=== PATIENT | male | born 1950 | race Caucasian/White ===

== ENCOUNTER 2016-07-27 12:00 | Emergency (ER) | payer SELFPAY ==
[2016-07-27] MEDS ORDERED: Sodium Chloride 0.9% 1,000 ML PRIMARY IV ONE (12:07)
[2016-07-27] MEDS ORDERED: NORMAL SALINE 10 ML SYRINGE FLUSH IVP PRN (12:07)
[2016-07-27] MEDS ORDERED: Sodium Chloride 0.9% 1,000 ML, Magnesium Sulfate 2gm (Premix) 50 ML with Multivitamin I... IV ONE ×5 (12:09)
[2016-07-27] MEDS ORDERED: MVI, ADULT NO.1 WITH VIT K 10 ML VIAL IV ONE (12:30)
[2016-07-27] MEDS ORDERED: Sodium Chloride 0.9% 1,000 ML ONE (12:32)
[2016-07-27] MEDS ORDERED: FOLIC ACID 5 MG/1 ML - 10 ML ONE (12:32)
[2016-07-27] MEDS ORDERED: THIAMINE 100 MG/1 ML - 2 ML ONE (12:32)
[2016-07-27] MEDS ORDERED: Magnesium Sulfate 2gm (Premix) 50 ML IV ONE (12:32)
[2016-07-27 12:43] LABS: BASOPHILS # (AUTO) 0.07 10*3/UL; BASOPHILS % (AUTO) 1.5 % (0-1); EOSINOPHILS % (AUTO) 0.8 % (0-8); HEMATOCRIT 43.5 % (42.0-52.0); HEMOGLOBIN 15.6 g/dL (14.0-18.0); IMM GRAN % (AUTO) 0 % (0-5); IMM GRAN# (AUTO) 0 10*3/UL; LYMPHOCYTES # (AUTO) 2.33 10*3/uL; LYMPHOCYTES % (AUTO) 48.4 % (10-50); MEAN CORPUSCULAR HEMOGLOBIN 32.8 PG (27-31); MEAN CORPUSCULAR HGB CONC 35.9 g/dL (33-37); MEAN PLATELET VOLUME 9.5 FL (7.4-12.2); MONOCYTES # (AUTO) 0.39 10*3/UL (0.3-0.8); MONOCYTES % (AUTO) 8.1 % (5-15); NEUTROPHILS # (AUTO) 1.98 10*3/UL; NEUTROPHILS % (AUTO) 41.2 % (50-80); RDW COEFFICIENT OF VARIATION 13.5 % (11.5-14.5); RED BLOOD COUNT 4.75 10^6/uL (4.70-6.10); WHITE BLOOD COUNT 4.81 10^3/uL (4.8-10.8)
[2016-07-27 12:44] LABS: PLATELET MORPHOLOGY COMMENT NORMAL MORPHOLOGY (NORM)
[2016-07-27 12:57] LABS: ASPARTATE AMINO TRANSFERASE 32 IU/L (21-57); BILIRUBIN,TOTAL 0.6 mg/dL (0.3-1.2); BLOOD UREA NITROGEN 9 mg/dL (7-22); BUN/CREATININE RATIO 11.25 (6-20); CALCIUM 8.8 mg/dL (8.7-10.7); CHLORIDE 103 meq/L (98-112); CREATININE 0.8 mg/dL (0.70-1.50); EST GLOMERULAR FILTRATION > 60 (>60 ml/min/1.73m(2)); GLUCOSE 90 mg/dL (78-110); POTASSIUM 3.8 meq/L (3.8-5.2); SODIUM 145 meq/L (135-145); TOTAL PROTEIN 7.6 g/dL (6.1-8.0)
[2016-07-27 13:06] LABS: SERUM ALCOHOL 373 mg/dL (0-10)
[2016-07-27 14:16] VITALS: TEMP 96.9
[2016-07-27 15:22] LABS: BILIRUBIN,URINE NEGATIVE (NEG); CLARITY,URINE CLEAR (CLEAR); GLUCOSE, URINE (UA) NEGATIVE (NEG); LEUKOCYTE ESTERASE ,URINE NEGATIVE (NEG); NITRATE,URINE NEGATIVE (NEG); OCCULT BLOOD,URINE NEGATIVE (NEG); PH,URINE 5.5 (5.0-8.5); PROTEIN,URINE 30 mg/dl (NEG); UROBILINOGEN,URINE 0.2 EU/dL (0.2)
[2016-07-27 15:30] VITALS: RESP 18
[2016-07-27 15:31] LABS: URINE SAMPLE TYPE CLEAN CATCH URINE
[2016-07-27 15:32] LABS: SQUAMOUS EPITHELIAL CELL,UR FEW
[2016-07-27 15:52] LABS: CANNABINOID SCREEN,URINE NEGATIVE (NEG); COCAINE SCREEN NEGATIVE (NEG); METHAMPHETAMINES SCREEN,URINE NEGATIVE (NEG)
[2016-07-27 17:00] LABS: URINE SPECIFIC GRAVITY - MAN 1.015
--- NOTE | 2016-07-27 19:52 | PDOC ---
General Adult HPI - General Chief Complaint: General Medical Stated Complaint: alcoholic intoxication Date Seen by Provider: 07/27/16 Time Seen by Provider: 12:00 Source: POSITIVE: Patient, Police, EMS Exam Limitations: POSITIVE: No limitations Nurse's Notes Reviewed & Considered: Yes EMS Report Reviewed & Considered: Verbal - History of Present Illness Initial Comment: The patient is a 66-year-old male. He was riding the bus through [facility] on his way to [place]. He was very intoxicated while riding on the bus and the business mgr made him get off the bus. Police were then contacted and the patient is brought to the emergency room by ambulance. Patient knowledges that he's been on a 3 day alcoholic binge. He states he is on no medications and has no allergies. He states he used to take LSD. Police brought the patient to the emergency room for medical clearance. Have you received a tetanus shot in the past 10 years?: Unknown Body Location Affected: REPORTS: Other (As above) Timing: REPORTS: Gradual (Three-day alcoholic binge) Duration: >24 hours (Patient states 3 days) Severity: Moderate Quality: REPORTS: Other (Patient denies any pain anywhere) Context: REPORTS: None Modifying Factors: improves with: Nothing Similar Symptoms Previously: Yes (history of alcohol abuse) Recent Care Received: REPORTS: Denies Any Prior Injuries Related to Current Complaint?: No - Patient Home Medications Home Medications: Home Medications NK [No Home Medications Reported] 07/27/16 - Patient Allergies Allergies/Adverse Reactions: Allergies Allergy/AdvReac Type Severity Reaction Status Date / Time No Known Allergies Allergy Verified 07/27/16 12:21 Past Medical History - heen HEENT History: Denies History Cardiovascular History: Denies History Respiratory History: Denies History Gastrointestinal History: Denies History Genitourinary History: Denies History Endocrine History: Denies History Musculoskeletal History: Denies History Neurological History: Denies History Blood Disorders: Denies History Psychiatric History: Denies History Male Reproductive History: Denies History Cancer History: Denies History In Past Year Been Physically Harmed or Verbally Threatened: No History of MDRO: Unknown Tobacco Use: Current Every Day Smoker Alcohol Use: Heavy Substance Use Type: None Previous Surgical History: No Significant Family History: No pertinent family hx Past Medical History Reviewed: Reviewed - No Changes ROS - Limitations ROS Limitations: Intoxication (Patient able to answer questions well. He does smell very strongly of alcohol and his speech is slurred.) Constitution: REPORTS: Denies Symptoms Cardiovascular: REPORTS: Denies Cardiac Symptoms Respiratory: REPORTS: Denies Resp Symptoms Neurological: REPORTS: Denies Neuro Symptoms Gastrointestinal: REPORTS: Denies GI Symptoms Endocrine: REPORTS: Denies Symptoms Musculoskeletal: REPORTS: Denies MS Symptoms Genitourinary: REPORTS: Denies Symptoms Eyes: REPORTS: Denies Symptoms ENT: REPORTS: Denies Symptoms Skin: REPORTS: Denies Skin Symptoms Lympathic: REPORTS: Denies Lympathic Symptoms Immunologic: POSITIVE: Denies Symptoms Psychiatric: POSITIVE: Denies Psych Symptoms General Adult Exam - General Appearance General Appearance: POSITIVE: Cooperative, No Acute Distress, No Evidence of Trauma. NEGATIVE: Alert (Intoxicated but able to answer questions) - HEENT HEENT: POSITIVE: Head Inspection Nml, Eyes Inspection Nml, Ears Inspection Nml, Nose Inspection Nml, Oral/Dental Inspect. Nml, Pharynx Inspect. Nml, PERRL, EOMI - Pupils Pupil Size: 4 mm: Bilateral (PERRLA) - Neck Neck: POSITIVE: Normal Inspection, Thyroid Normal - Respiratory Respiratory: POSITIVE: No Respiratory Distress, Breath Sounds Normal, Chest Non- Tender - Cardiovascular Cardiovascular: POSITIVE: Regular Rate & Rhythm, No Murmur, No Gallop, PMI Normal Peripheral Pulses: Radial (R): 2+, Radial (L): 2+ - Abdomen Abdomen: Soft: (All Quadrants), Normal Bowel Sounds: (All Quadrants), Denies Tenderness: (All Quadrants), No Splenomegaly: (All Quadrants), No Hepatomegaly: (All Quadrants), No Guarding: (All Quadrants), No Rebound: (All Quadrants), No Palpable Pulse: (All Quadrants), No Palpabale Mass: (All Quadrants), No Distention: (All Quadrants), No Rigidity: (All Quadrants) - Back Back: POSITIVE: Normal Inspection - Skin Skin: POSITIVE: Normal Color, Warm, Dry, No Rash - Extremities Extremity: Non-Tender: (All Extremities), Normal ROM: (All Extremities), Normal Inspection: (All Extremities) - Neurological / Psychological Neurological: POSITIVE: 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, 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 As Tested, Motor Normal, Sensation Normal, 5, 6 General Adult Progress - Results Reviewed by me Lab Results Reviewed: Yes Lab Results:: Laboratory Results 07/27/16 07/27/16 Range/Units 15:03 Unknown WBC 4.81 (4.8-10.8) 10^3/uL RBC 4.75 (4.70-6.10) 10^6/uL Hgb 15.6 (14.0-18.0) g/dL Hct 43.5 (42.0-52.0) % MCV 91.6 H (80-90) FL MCH 32.8 H (27-31) PG MCHC 35.9 (33-37) g/dL RDW Std Deviation 44.6 (39-50) fL RDW Coeff of Queta 13.5 (11.5-14.5) % Plt Count 123 L (140-350) 10*3/uL MPV 9.5 (7.4-12.2) FL Immature Gran % (Auto) 0 (0-5) % Neut % (Auto) 41.2 L (50-80) % Lymph % (Auto) 48.4 (10-50) % [place] % (Auto) 8.1 (5-15) % Eos % (Auto) 0.8 (0-8) % Baso % (Auto) 1.5 H (0-1) % Immature Gran # (Auto) 0 10*3/UL Neut # (Auto) 1.98 10*3/UL Lymph # (Auto) 2.33 10*3/uL [place] # (Auto) 0.39 (0.3-0.8) 10*3/UL Eos # (Auto) 0.04 10*3/UL Baso # (Auto) 0.07 10*3/UL WBC Morphology Comment Normal morphology (NORM) Plt Morphology Comment Normal morphology (NORM) RBC Morph Comment Normal morphology (NORM) Sodium 145 (135-145) meq/L Potassium 3.8 (3.8-5.2) meq/L Chloride 103 (98-112) meq/L Carbon Dioxide 24 (23-33) meq/L Anion Gap 18 (5-20) BUN 9 (7-22) mg/dL Creatinine 0.8 (0.70-1.50) mg/dL Estimated GFR > 60 (>60 ml/min/1.73m(2)) BUN/Creatinine Ratio 11.25 (6-20) Glucose 90 (78-110) mg/dL Calculated Osmolality 298.0 H (267-292) mOsm/kg Calcium 8.8 (8.7-10.7) mg/dL Total Bilirubin 0.6 (0.3-1.2) mg/dL AST 32 (21-57) IU/L ALT 28 (21-72) IU/L Alkaline Phosphatase 63 (38-126) IU/L Total Protein 7.6 (6.1-8.0) g/dL Albumin 4.7 (3.5-4.8) g/dL Globulin 3.0 (2.50-4.10) g/dL Albumin/Globulin Ratio 1.50 (1.3-2.0) mg/g Ur Collection Type Clean catch urine Urine Color Yellow Urine Clarity Clear (CLEAR) Urine pH 5.5 (5.0-8.5) Ur Specific [place] 1.015 (1.005-1.030) U Specif Grav (Refrac) 1.015 Urine Protein 30 (NEG) mg/dl Urine Glucose (UA) Negative (NEG) mg/dL Urine Ketones Trace (NEG) Urine Occult Blood Negative (NEG) Urine Nitrate Negative (NEG) Urine Bilirubin Negative (NEG) Urine Urobilinogen 0.2 (0.2) EU/dL Ur Leukocyte Esterase Negative (NEG) Urine RBC None (NONE) /hpf Urine WBC 1-2 (NONE) Ur Squamous Epith Cells Few (NONE) Ur Renal Epithelial Cell None (NONE) Urine Crystals None Urine Bacteria None (NONE) Urine Casts Many (NONE) Urine Mucus None (NONE) Urine Trichomonas None (NONE) Urine Yeast None (NONE) Ur Culture Indicated? Culture not set Urine Opiates Screen Negative (NEG) Ur Buprenorphine Negative (NEG) Ur Oxycodone Screen Negative (NEG) Urine Methadone Screen Negative (NEG) Ur Propoxyphene Screen Negative (NEG) Barbiturate Screen Negative (NEG) U Tricyclic Antidepress Negative (NEG) Phencyclidine Screen Negative (NEG) Amphetamines Screen Negative (NEG) U Methamphetamines Scrn Negative (NEG) Benzodiazepines Screen Negative (NEG) Cocaine Screen Negative (NEG) U Marijuana (THC) Screen Negative (NEG) Serum Alcohol 373 H (0-10) mg/dL - Patient's Progress Pain Medication Addressed: POSITIVE: Not Applicable School/Work Release Addressed: POSITIVE: Not Applicable Re-Examine Time: 13:45 Re-Examine Comment: Patient given a banana bag of 1 L of saline with 2 g of magnesium sulfate, 100 mg of thiamine and 1 mg of folate acid. Observed in the ER until 1345. Medically cleared to accompany police. Status: POSITIVE: Improved, Re-Examined Antibiotics Given: No - Consult Counseled: POSITIVE: Patient, RE: Lab Results, RE: DX, RE: Need for F/U, Other ( Police) Patient Care Time - Estimated PCT Patient Care Time (In Minutes): 50 Vital Signs - Recent Vital Signs Vital Signs: Vital Signs (Last 8 hours) Temp Pulse Pulse Resp BP BP Pulse Ox 07/27/16 15:15 84 18 127/98 98 07/27/16 12:07 96.9 F 96 20 136/94 94 - VS Reviewed Vital Signs Reviewed: Yes Discharge Clinical Impression: Alcoholic intoxication Discharge Disposition: Discharged to Custody of Law Enforcement Condition: Fair Patient Instructions Given at Discharge: Abuse of Alcohol (ED) Additional Instructions: Avoid further use of alcohol. Follow-up with your primary care provider. Return here anytime if condition worsens in any way. Follow Up With: NONE,NONE [Primary Care Provider] - (Avoid further use of alcohol. Follow-up with your primary care provider. Return here anytime if condition worsens.) Date Decision to Transfer to Another Facility: 07/27/16 Time Decision to Transfer to Another Facility: 13:45
== END 2016-07-27 15:15 | disposition home or self-care (01) ==
LOC: ER 12:00
DX: F10.129 Alcohol abuse with intoxication, unspecified (principal); Z72.0 Tobacco use
CPT/HCPCS: 80053; 80305; 80320; 81001; 81003; 85025; 96365; 96366; 99283; J3411; J3475; J7030